=== PATIENT | female | born 1950 | race Caucasian/White ===

== ENCOUNTER 2022-05-18 04:46 | Day surgery (SDC) | payer OTHER ==
[2022-05-17 10:48] VITALS: BMI 28.3
[2022-05-18] MEDS ORDERED: LIDOCAINE HCL/PF 1% SDV 5ML VIAL ONE (07:36)
[2022-05-18] MEDS ORDERED: DEXAMETHASONE SOD PHOSPHATE 10 MG/1 ML VIAL ONE (07:36)
[2022-05-18] MEDS ORDERED: LIDOCAINE HCL 1%, 10 MG/ML (50 mL VIAL) NR ONE (11:43)
[2022-05-18] MEDS ORDERED: IOHEXOL 180 MG/1 ML ML IJ ONE (11:43)
[2022-05-18] MEDS ORDERED: DEXAMETHASONE SOD PHOSPHATE 10 MG/1 ML VIAL IVPUSH ONE (11:43)
[2022-05-18 12:20] VITALS: RESP 16
[2022-05-18 12:36] VITALS: BP 156/64; PULSE 74; TEMP 97.1
== END 2022-05-18 12:35 | disposition home or self-care (01) ==
LOC: JASU-SURG 04:46
PROVIDERS: ATTEND Pain Medicine Pain Medicine
PROC: 3E0R33Z Introduction of Anti-inflammatory into Spinal Canal, Percutaneous Approach (ICD-10-PCS; 2022-05-18)
PROC: B01BYZZ Fluoroscopy of Spinal Cord using Other Contrast (ICD-10-PCS; 2022-05-18)
PROC: 3E0R3BZ Introduction of Anesthetic Agent into Spinal Canal, Percutaneous Approach (ICD-10-PCS; principal; 2022-05-18 11:00)
DX: M54.16 Radiculopathy, lumbar region (principal)
CPT/HCPCS: 76000-TC-FY; J1100

== ENCOUNTER 2022-12-14 04:18 | Day surgery (SDC) | payer OTHER ==
[2022-12-10 12:16] VITALS: BMI 29.2
[~2022-12-14 04:18] MED LIST: DEXAMETHASONE SOD PHOSPHATE 10 MG/1 ML VIAL IM ONE; IOHEXOL 180 MG/1 ML ML IJ ONE
[2022-12-14] MEDS ORDERED: LIDOCAINE HCL/PF 1% SDV 5ML VIAL ONE ×2 (07:32→13:13)
[2022-12-14] MEDS ORDERED: DEXAMETHASONE SOD PHOSPHATE 10 MG/1 ML VIAL ONE ×2 (07:32→12:02)
[2022-12-14] MEDS ORDERED: ACETAMINOPHEN 500 MG TABLET (FP) PO PRN (11:04)
[2022-12-14 13:15] VITALS: RESP 18
[2022-12-14] MEDS ORDERED: LIDOCAINE HCL 1% PRESERVATIVE FREE - 30ML VIAL IJ ONE (13:45)
[2022-12-14] MEDS ORDERED: IOHEXOL 180 MG/1 ML ML IJ ONE (13:47)
[2022-12-14] MEDS ORDERED: DEXAMETHASONE SOD PHOSPHATE 10 MG/1 ML VIAL IM ONE (13:49)
[2022-12-14 14:45] VITALS: BP 139/71; PULSE 66; TEMP 98
== END 2022-12-14 14:40 | disposition home or self-care (01) ==
LOC: JASU-SURG 04:18
PROVIDERS: ATTEND Pain Medicine Pain Medicine
PROC: 3E0R3BZ Introduction of Anesthetic Agent into Spinal Canal, Percutaneous Approach (ICD-10-PCS; 2022-12-14)
PROC: 3E0R33Z Introduction of Anti-inflammatory into Spinal Canal, Percutaneous Approach (ICD-10-PCS; principal; 2022-12-14 16:00)
DX: M54.16 Radiculopathy, lumbar region (principal)
CPT/HCPCS: 76000-TC-FY; J1100

== ENCOUNTER 2023-01-21 04:04 | Day surgery (SDC) | payer OTHER ==
[2023-01-19 14:41] VITALS: BMI 29.2
[2023-01-21] MEDS ORDERED: LIDOCAINE HCL/PF 1% SDV 5ML VIAL ONE (07:33)
[2023-01-21] MEDS ORDERED: ACETAMINOPHEN 500 MG TABLET (FP) PO PRN (08:58)
[2023-01-21] MEDS ORDERED: CEFAZOLIN 1 GM in SODIUM CHLORIDE 50 ML IVPB ONE (14:45)
[2023-01-21] MEDS ORDERED: ceFAZolin SODIUM 1 GM VIAL IVPB ONE (14:56)
[2023-01-21] MEDS ORDERED: LIDOCAINE HCL 1% PRESERVATIVE FREE - 30ML VIAL IJ ONE (15:00)
[2023-01-21] MEDS ORDERED: LIDOCAINE HCL/PF 2% SDV 5ML VIAL INF ONE (15:00)
[2023-01-21 16:54] VITALS: RESP 18; TEMP 98
[2023-01-21 17:46] VITALS: BP 134/64; PULSE 80
== END 2023-01-21 18:00 | disposition home or self-care (01) ==
LOC: JASU-SURG 04:04
PROVIDERS: ATTEND Pain Medicine Pain Medicine
PROC: 01HY3MZ Insertion of Neurostimulator Lead into Peripheral Nerve, Percutaneous Approach (ICD-10-PCS; principal; 2023-01-21 13:45)
DX: M96.1 Postlaminectomy syndrome, not elsewhere classified (principal)
CPT/HCPCS: 63650; C1778; 76000-TC-FY; C1897

== ENCOUNTER 2023-02-18 05:33 | Day surgery (SDC) | payer OTHER ==
[2023-02-14 10:42] VITALS: BMI 29.2
[~2023-02-18 05:33] MED LIST changes: -DEXAMETHASONE SOD PHOSPHATE 10 MG/1 ML VIAL IM ONE; -IOHEXOL 180 MG/1 ML ML IJ ONE; +LIDOCAINE HCL 1% PRESERVATIVE FREE - 30ML VIAL IJ ONE
[2023-02-18 08:18] VITALS: RESP 18
[2023-02-18] MEDS ORDERED: LIDOCAINE HCL 1% PRESERVATIVE FREE - 30ML VIAL IJ ONE ×2 (09:28)
[2023-02-18 12:26] VITALS: BP 129/70; PULSE 66; TEMP 97.9
[2023-02-18] MEDS ORDERED: ACETAMINOPHEN 500 MG TABLET (FP) PO PRN (13:48)
== END 2023-02-18 10:56 | disposition home or self-care (01) ==
LOC: JASU-SURG 05:33
PROVIDERS: ATTEND Pain Medicine Pain Medicine
PROC: 01HY3MZ Insertion of Neurostimulator Lead into Peripheral Nerve, Percutaneous Approach (ICD-10-PCS; principal; 2023-02-18 10:15)
DX: G89.4 Chronic pain syndrome (principal)
CPT/HCPCS: 64555; C1778

== ENCOUNTER 2023-03-15 04:39 | Day surgery (SDC) | payer OTHER ==
[2023-03-09 17:48] VITALS: BMI 29.2
[2023-03-15] MEDS ORDERED: LIDOCAINE HCL 1% PRESERVATIVE FREE - 30ML VIAL IJ ONE ×2 (11:16)
[2023-03-15 12:22] VITALS: RESP 16; TEMP 98.5
[2023-03-15 14:00] VITALS: BP 130/60; PULSE 64
[2023-03-15] MEDS ORDERED: ACETAMINOPHEN 500 MG TABLET (FP) PO PRN (16:08)
== END 2023-03-15 13:25 | disposition home or self-care (01) ==
LOC: JASU-SURG 04:39
PROVIDERS: ATTEND Pain Medicine Pain Medicine
PROC: 01HY3MZ Insertion of Neurostimulator Lead into Peripheral Nerve, Percutaneous Approach (ICD-10-PCS; principal; 2023-03-15 10:00)
DX: G89.4 Chronic pain syndrome (principal)
CPT/HCPCS: 64555; C1778